=== PATIENT | male | born 1995 | race African-American/Black ===

== ENCOUNTER 2018-10-29 18:09 | Inpatient (IN) ==
--- NOTE | 2018-10-29 19:05 | ED ---
HPI General Chief Complaint: Extremity Injury, Upper Stated Complaint: Hand injury Time Seen by Provider: 10/29/18 18:47 Source: patient Mode of arrival: ambulatory Limitations: no limitations History of Present Illness HPI narrative: Patient is a 22-year-old male here today for pain and swelling to the dorsal aspect of his right hand at the base of his fourth and fifth digits. He states that he became upset and he punched the floor which was cement. He is able to move his hand but states it causes significant pain when doing so. Denies any medical history, denies taking medication daily. complaint: injury to: Reports right and hand Onset (ago): hour(s) Other Extremity Injury: Right: hand Handedness: right Severity: moderate Severity scale (1-10): 6 Relieving factors: none Exacerbating factors: movement of extremity Related Data Previous Rx's Medication Instructions Recorded hydrocodone-acetaminophen [[place]] 1 tab PO Q8H PRN #9 tab 10/30/18 ondansetron HCl [Zofran] 4 mg PO Q8H PRN #9 tab 10/30/18 Allergies Allergy/AdvReac Type Severity Reaction Status Date / Time No Known Allergies Allergy Verified 10/31/18 04:55 Review of Systems ROS: all other systems reviewed are negative [facility] Medical History Medical History Patient denies medical problems (Acute) Surgical History Surgical History No history of previous surgery (Acute) Social History Social History Substance History: Active Abuse Second Hand Smoke Exposure: No Smoking Status: Never smoker How Often Do You Have a Drink Containing Alcohol: Never Recent Travel in [facility] within the Last 8 Weeks: No Recent Out of Country Travel within the Last 8 Weeks: No Substance Abuse Detail Marijuana: Substance Use Status: Active Route Used Substance Abuse: Inhalation Immunization History Tetanus Immunization: Unsure Exam Narrative Exam Narrative: GENERAL: Pt awake, alert, oriented, no acute distress, answering questions appropriately. SKIN: Focused skin assessment warm/dry. No diaphoresis, no flushing, no rashes. HEAD: Atraumatic. Normocephalic. EYES: Pupils equal and round reactive to light. No scleral icterus. No injection or drainage. ENT: Tympanic membranes pearly chance bilaterally no effusions. Ear canal normal for ethnicity no drainage no inflammation no pain on palpation. Nares with no erythema no drainage. No facial or forehead tenderness with palpation. Negative mastoid tenderness bilaterally. Posterior pharynx with no erythema, tonsils 2+ bilaterally no exudate. Negative head or neck lymphadenopathy. NECK: Trachea midline. No JVD. CARDIOVASCULAR: Regular rate and rhythm. No murmur, no pedal edema. appreciated. RESPIRATORY: No accessory muscle use. Clear to auscultation. Breath sounds equal bilaterally. No accessory muscle use. GASTROINTESTINAL: Abdomen soft, non-tender, nondistended. Hepatic and splenic margins not palpable, (+) bowel sounds all 4 quadrants. Negative CVA tenderness bilaterally. MUSCULOSKELETAL: No obvious deformities. No clubbing. No cyanosis. (+) E edema /hematoma to the dorsal aspect of right hand at the base of fourth and fifth digits hematomas approximately 4 cm in length. Patient able to open and close his hand but states it causes significant pain when doing so. Capillary refill on all digits of affected hand less than 2 seconds. NEUROLOGICAL: Awake and alert. No obvious cranial nerve deficits. Motor grossly within normal limits. Normal speech. PSYCHIATRIC: Appropriate mood and affect; insight and judgment normal. Course Initial Documented Vital Signs Temperature 98.5 F 10/29/18 18:19 Pulse Rate 62 10/29/18 18:19 Respiratory Rate 16 10/29/18 18:19 Blood Pressure 148/97 H 10/29/18 18:19 Last Documented Vital Signs Temperature 98.2 F 10/30/18 16:00 Pulse Rate 114 H 10/30/18 16:00 Respiratory Rate 20 10/30/18 16:00 Blood Pressure 148/75 H 10/30/18 16:00 Pulse Oximetry 93 L 10/30/18 16:00 Medical Decision Making MDM Narrative Medical decision making narrative: Medical decision making narrative: During the course of the patients emergency department visit, the patients history, examination, and differential diagnosis were reviewed with the patient. Patient punched the cement floor there is a high suspicion of a boxer's fracture x-ray of hand ordered, [place] and ibuprofen also ordered as well as ice pack. 2034-Radiology studies were reviewed and remarkable for 4th and 5th Fracture dislocation of the fourth and fifth metacarpals. Pt transferred to medical pod , discussed case and transferred care to Dr. Moncada Medical Screen Exam Complete: Yes Emergency Medical Condition: Yes 2044 Care assumed of patient in transfer from fast track to medical pod. X-ray imaging shows comminuted mildly displaced fracture of the base of the fourth metacarpal with associated dorsal dislocation. Fifth metacarpal also appears to be grossly dislocated. I spoke with Dr. Alexander hand surgeon who requests admission to medicine and will take patient to the OR in the morning for surgical repair. N.p.o. at midnight. I spoke with Dr. Sylvester [facility] who accepts the patient to her service. Medical Screen Exam Complete: Yes Emergency Medical Condition: Yes Differential Diagnosis Differential Diagnosis: Boxer's fracture,hematoma, phalynx fracture, ulna fracture Lab Data Result diagrams: 10/30/18 06:34 10/30/18 06:34 Lab Results 10/29/18 10/29/18 10/29/18 Range/Units 22:13 22:13 22:13 WBC 6.7 (4.0-11.0) th/mm3 RBC 5.26 (4.50-5.90) mil/mm3 Hgb 16.7 (13.0-17.0) gm/dL Hct 48.3 (39.0-51.0) % MCV 91.9 (80.0-100.0) fL MCH 31.7 (27.0-34.0) pg MCHC 34.6 (32.0-36.0) % RDW 13.3 (11.6-17.2) % Plt Count 343 (150-450) th/mm3 MPV 8.4 (7.0-11.0) fL Neut % (Auto) 51.2 (16.0-70.0) % Lymph % (Auto) 38.9 (9.0-44.0) % [place] % (Auto) 7.8 (0.0-8.0) % Eos % (Auto) 1.3 (0.0-4.0) % Baso % (Auto) 0.8 (0.0-2.0) % Neut # (Auto) 3.4 (1.8-7.7) th/mm3 Lymph # (Auto) 2.6 (1.0-4.8) th/mm3 [place] # (Auto) 0.5 (0.0-0.9) th/mm3 Eos # (Auto) 0.1 (0.0-0.4) th/mm3 Baso # (Auto) 0.1 (0.0-0.2) th/mm3 WBC Differential . Differential Comment Auto diff final PT 11.2 (9.8-11.6) sec INR 1.1 Ratio APTT 31.5 (23.4-31.7) sec Sodium 141 (136-145) meq/L Potassium 3.3 L (3.5-5.1) meq/L Chloride 106 (98-107) meq/L Carbon Dioxide 25.8 (21.0-32.0) meq/L Anion Gap 9 (5-15) meq/L BUN 10 (7-18) mg/dL Creatinine 1.36 H (0.60-1.30) mg/dL Estimated GFR 78 L (>89) mL/min Random Glucose 124 H (74-106) mg/dL Calcium 9.3 (8.5-10.1) mg/dL Total Bilirubin 1.4 H (0.2-1.0) mg/dL AST 42 H (15-37) U/L ALT 34 (12-78) U/L Alkaline Phosphatase 51 (45-117) U/L Total Creatine Kinase (39-308) U/L CK-MB (CK-2) (0.5-3.6) ng/mL CK-MB (CK-2) % (0.0-4.0) % Total Protein 7.7 (6.4-8.2) g/dL Albumin 4.4 (3.4-5.0) g/dL 10/30/18 10/30/18 Range/Units 06:34 06:34 WBC 6.2 (4.0-11.0) th/mm3 RBC 4.55 (4.50-5.90) mil/mm3 Hgb 14.6 D (13.0-17.0) gm/dL Hct 42.0 (39.0-51.0) % MCV 92.3 (80.0-100.0) fL MCH 32.0 (27.0-34.0) pg MCHC 34.7 (32.0-36.0) % RDW 13.2 (11.6-17.2) % Plt Count 290 (150-450) th/mm3 MPV 8.5 (7.0-11.0) fL Neut % (Auto) 43.6 (16.0-70.0) % Lymph % (Auto) 39.5 (9.0-44.0) % [place] % (Auto) 11.8 H (0.0-8.0) % Eos % (Auto) 4.5 H (0.0-4.0) % Baso % (Auto) 0.6 (0.0-2.0) % Neut # (Auto) 2.7 (1.8-7.7) th/mm3 Lymph # (Auto) 2.5 (1.0-4.8) th/mm3 [place] # (Auto) 0.7 (0.0-0.9) th/mm3 Eos # (Auto) 0.3 (0.0-0.4) th/mm3 Baso # (Auto) 0.0 (0.0-0.2) th/mm3 WBC Differential . Differential Comment Auto diff final PT (9.8-11.6) sec INR Ratio APTT (23.4-31.7) sec Sodium 144 (136-145) meq/L Potassium 3.8 (3.5-5.1) meq/L Chloride 109 H (98-107) meq/L Carbon Dioxide 27.5 (21.0-32.0) meq/L Anion Gap 8 (5-15) meq/L BUN 9 (7-18) mg/dL Creatinine 1.46 H (0.60-1.30) mg/dL Estimated GFR 72 L (>89) mL/min Random Glucose 79 (74-106) mg/dL Calcium 8.1 L D (8.5-10.1) mg/dL Total Bilirubin 0.9 (0.2-1.0) mg/dL AST 32 (15-37) U/L ALT 29 (12-78) U/L Alkaline Phosphatase 46 (45-117) U/L Total Creatine Kinase 939 H (39-308) U/L CK-MB (CK-2) 2.3 (0.5-3.6) ng/mL CK-MB (CK-2) % 0.2 (0.0-4.0) % Total Protein 6.4 D (6.4-8.2) g/dL Albumin 3.5 D (3.4-5.0) g/dL Imaging Data Radiologist's impression: Hand X-Ray 10/29/18 18:58 CONCLUSION: 1. Fracture dislocation of the fourth and fifth metacarpals, as above. Discharge Plan Discharge Disposition Patient Disposition: ED Admit(ED Internal Use Only) Discharge Condition Condition: Stable Discharge Order Discharge Orders: Discharge Order (Routine); Ordered 10/30/18 Ordered By: María Peters ED Use Only Admit Order (Routine); Ordered 10/29/18 Ordered By: Christy Griggs Discharge Details Anticipated Discharge Date: 10/30/18 Diagnosis: Closed fracture dislocation of carpometacarpal joint of right hand Physicians Team ED Provider: Marielle Rivera ED Midlevel Provider: Christy Griggs Primary Care Provider: Primary Care Angie Carver Attending Provider: Lion Yun Other Providers: Bennie Alexander Status ED Status: Left Department Discharge Information Discharge Date/Time: 10/29/18 22:46
--- NOTE | 2018-10-29 19:17 | XR ---
EXAM DATE: 10/29/2018 7:14 PM EST AGE/SEX: 22 years / Male INDICATIONS: Right hand pain. patient hit hand on ground at kickboxing. CLINICAL DATA: This is the patient's initial encounter. Patient reports that signs and symptoms have been present for 1 day and indicates a pain score of 10/10. MEDICAL/SURGICAL HISTORY: None. None. COMPARISON: No prior exams available for comparison. FINDINGS: Comminuted mildly displaced fracture of the base of the fourth metacarpal with associated dorsal disl ocation. Fifth metacarpal also appears to be grossly dislocated. CONCLUSION: 1. Fracture dislocation of the fourth and fifth metacarpals, as above. Electronically signed by: Deandre Marmolejo MD Board Certified Radiologist 10/29/2018 7:16 PM EST
[2018-10-29] MEDS ORDERED: Bisacodyl 10 MG Supp RECTAL PRN (21:45)
[2018-10-29] MEDS ORDERED: Acetaminophen 325 MG Tablet PO PRN (21:45)
--- NOTE | 2018-10-29 21:46 | P.HPIM ---
History of Present Illness Primary Care Physician: No Primary Care Physician History of Present Illness: This is a 22-year-old male with no significant PMH who presents the ER with complaints of right hand pain and swelling after punching the cement ground. States he got angry and punched the floor. +right hand pain, severe, 10/10, non-radiating, worse w/ movement. No other injuries reported. On arrival, BP 148/97, HR 62, Afebrile. CBC unremarkable. INR 1.1. Creatinine 1.36, no previous labs for comparison. Hand X-ray with fracture dislocation of the fourth and fifth metacarpals. Dr. Paz consulted, plan for surgical intervention in am. Diagnosis (1) Closed fracture dislocation of carpometacarpal joint of right hand: (2) LISANDRO (acute kidney injury): Review of Systems PAST FAMILY HISTORY: Reviewed. No h/o DM or CAD Review of Systems: all other systems reviewed are negative [facility] Medical History Medical History Patient denies medical problems (Acute) Surgical History Surgical History No history of previous surgery (Acute) Social History Social History Substance History: Active Abuse Second Hand Smoke Exposure: No Smoking Status: Never smoker How Often Do You Have a Drink Containing Alcohol: Never Recent Travel in [place] within the Last 8 Weeks: No Recent Out of Country Travel within the Last 8 Weeks: No Substance Abuse Detail Marijuana: Substance Use Status: Active Route Used Substance Abuse: Inhalation Immunization History Tetanus Immunization: Unsure Medications and Allergies Allergies Allergy/AdvReac Type Severity Reaction Status Date / Time No Known Allergies Allergy Verified 10/29/18 18:48 Home Medications Medication Instructions Recorded Confirmed Type No Known Home Medications 10/29/18 10/29/18 History Active Medications: Active Medications Sodium Chloride (Ns Flush) 2 ml IV.FLUSH PRN PRN PRN Reason: FLUSH AFTER USING IV ACCESS Physical Exam Vital signs: Vital Signs 10/29/18 18:19 Temperature 98.5 F Pulse Rate 62 Respiratory Rate 16 Blood Pressure 148/97 H Intake & Output 02/22/19 02/22/19 02/23/19 06:59 18:59 06:59 Weight 77.564 kg Narrative: PE: GENERAL: Very pleasant young black male in no acute distress. SKIN: Focused skin assessment warm and dry. HEENT: PERRLA, EOMI. No scleral icterus or conjunctival pallor. No lid lag or facial droop. CARDIOVASCULAR: Regular rate and rhythm. No obvious murmurs to auscultation. No chest tenderness to palpation. RESPIRATORY: No obvious rhonchi or wheezing. Clear to auscultation. Breath sounds equal bilaterally. GASTROINTESTINAL: Abdomen soft, non-tender, nondistended. BS normal. MUSCULOSKELETAL: Extremities without clubbing, cyanosis, or edema. No obvious deformities. Decreased ROM of right hand due to injury NEUROLOGICAL: Awake, alert and oriented x4. No focal neurologic deficits. Moving both upper and lower extremities spontaneously. PSYCHIATRIC: Appropriate mood and affect. Insight and judgment normal. Results Labs CBC & Chem 7: 10/29/18 22:13 10/29/18 22:13 Imaging Impressions Hand X-Ray 10/29/18 18:58 CONCLUSION: 1. Fracture dislocation of the fourth and fifth metacarpals, as above. Caprini VTE Risk Assessment Caprini VTE Risk Assessment: No/Low Risk (score <= 1) Caprini Risk Assessment Model: Point Value = 1 Point Value = 2 Point Value = 3 Point Value = 5 Age 41-60 Minor surgery BMI > 25 kg/m2 Swollen legs Varicose veins or History of unexplained or recurrent spontaneous Oral contraceptives or hormone replacement Sepsis (< 1 month) Serious lung disease, including pneumonia (< 1 month) Abnormal pulmonary function Acute myocardial infarction Congestive heart failure (< 1 month) History of inflammatory bowel disease Medical patient at bed rest Age 61-74 Arthroscopic surgery Major open surgery (> 45 min) Laparoscopic surgery (> 45 min) Malignancy Confined to bed (> 72 hours) Immobilizing plaster cast Central venous access Age >= 75 History of VTE Family history of VTE Factor V Leiden Prothrombin [id number] Lupus anticoagulant Anticardiolipin antibodies Elevated serum homocysteine Heparin-induced thrombocytopenia Other congenital or acquired thrombophilia Stroke (< 1 month) Elective arthroplasty Hip, pelvis, or leg fracture Acute spinal cord injury (< 1 month) Prophylaxis Regimen: Total Risk Factor Score Risk Level Prophylaxis Regimen 0-1 Low Early ambulation 2 Moderate Order ONE of the following: *Sequential Compression Device (SCD) *Heparin 5000 units SQ BID 3-4 Higher Order ONE of the following medications: *Heparin 5000 units SQ TID *Enoxaparin/Lovenox 40 mg SQ daily (WT < 150 kg, CrCl > 30 mL/min) *Enoxaparin/Lovenox 30 mg SQ daily (WT < 150 kg, CrCl > 10-29 mL/min) *Enoxaparin/Lovenox 30 mg SQ BID (WT < 150 kg, CrCl > 30 mL/min) AND/OR *Sequential Compression Device (SCD) 5 or more Highest Order ONE of the following medications: *Heparin 5000 units SQ TID (Preferred with Epidurals) *Enoxaparin/Lovenox 40 mg SQ daily (WT < 150 kg, CrCl > 30 mL/min) *Enoxaparin/Lovenox 30 mg SQ daily (WT < 150 kg, CrCl > 10-29 mL/min) *Enoxaparin/Lovenox 30 mg SQ BID (WT < 150 kg, CrCl > 30 mL/min) AND *Sequential Compression Device (SCD) Assessment and Plan (1) Closed fracture dislocation of carpometacarpal joint of right hand: Status: Acute (2) LISANDRO (acute kidney injury): Code(s): N17.9 - Acute kidney failure, unspecified Status: Acute Plan A/P: 1. Right Hand Fx: after punching cement ground, X-ray w/ fracture dislocation of the fourth and fifth metacarpals. Dr. Paz consulted, plan is for surgical intervention in am. NPO after midnight, IVF, analgesics/antiemetics as needed. 2. LISANDRO: Creatinine 1.46, no previous labs for comparison, presumably new, IVF for hydration, monitor I/O, repeat labs in am. 3. DVT Prophylaxis: SCD/Teds 4. Social work for DC planning as needed. 5. Case discussed at length with the ER physician, labs/records/imaging reviewed by me.
[2018-10-29 22:29] LABS: Baso # (Auto) 0.1 th/mm3 (0.0-0.2); Baso % (Auto) 0.8 % (0.0-2.0); Eos # (Auto) 0.1 th/mm3 (0.0-0.4); Eos % (Auto) 1.3 % (0.0-4.0); Hematocrit 48.3 % (39.0-51.0); Hemoglobin 16.7 gm/dL (13.0-17.0); Lymph # (Auto) 2.6 th/mm3 (1.0-4.8); Lymph % (Auto) 38.9 % (9.0-44.0); Mean Corpuscular HGB Conc 34.6 % (32.0-36.0); Mean Corpuscular Hemoglobin 31.7 pg (27.0-34.0); Mean Corpuscular Volume 91.9 fL (80.0-100.0); Mean Platelet Volume 8.4 fL (7.0-11.0); Mono # (Auto) 0.5 th/mm3 (0.0-0.9); Mono % (Auto) 7.8 % (0.0-8.0); Neut # (Auto) 3.4 th/mm3 (1.8-7.7); Neut % (Auto) 51.2 % (16.0-70.0); Platelet Count 343 th/mm3 (150-450); Red Blood Count 5.26 mil/mm3 (4.50-5.90); Red Cell Distribution Width 13.3 % (11.6-17.2); White Blood Count 6.7 th/mm3 (4.0-11.0)
[2018-10-29 22:42] LABS: Activated Partial Thrombo Time 31.5 sec (23.4-31.7); INR 1.1 Ratio; Prothrombin Time 11.2 sec (9.8-11.6)
[2018-10-29 22:50] LABS: Albumin 4.4 g/dL (3.4-5.0); Anion Gap 9 meq/L (5-15); Aspartate Aminotransferase 42 U/L (15-37); Blood Urea Nitrogen 10 mg/dL (7-18); Calcium 9.3 mg/dL (8.5-10.1); Carbon Dioxide 25.8 meq/L (21.0-32.0); Chloride 106 meq/L (98-107); Glomerular Filtration Rate 78 mL/min (>89); Glucose,Random 124 mg/dL (74-106); Potassium 3.3 meq/L (3.5-5.1); Sodium 141 meq/L (136-145)
[2018-10-29] MEDS: Sod Chloride 0.9% Inj 1,000 ML IV.CONT SCH (22:52)
[2018-10-29 22:54] LABS: Alanine Aminotransferase 34 U/L (12-78); Alkaline Phosphatase 51 U/L (45-117); Total Protein 7.7 g/dL (6.4-8.2)
[2018-10-29] MEDS: Morphine Sulfate Inj 2 MG/ML Vial IV.PUSH PRN (23:02)
[2018-10-30] MEDS: Morphine Sulfate Inj 2 MG/ML Vial IV.PUSH PRN ×2 (04:53→08:24)
[2018-10-30 07:06] LABS: Baso % (Auto) 0.6 % (0.0-2.0); Eos # (Auto) 0.3 th/mm3 (0.0-0.4); Eos % (Auto) 4.5 % (0.0-4.0); Hemoglobin 14.6 gm/dL (13.0-17.0); Lymph # (Auto) 2.5 th/mm3 (1.0-4.8); Lymph % (Auto) 39.5 % (9.0-44.0); Mean Corpuscular HGB Conc 34.7 % (32.0-36.0); Mean Corpuscular Volume 92.3 fL (80.0-100.0); Mean Platelet Volume 8.5 fL (7.0-11.0); Mono # (Auto) 0.7 th/mm3 (0.0-0.9); Mono % (Auto) 11.8 % (0.0-8.0); Neut # (Auto) 2.7 th/mm3 (1.8-7.7); Neut % (Auto) 43.6 % (16.0-70.0); Platelet Count 290 th/mm3 (150-450); Red Blood Count 4.55 mil/mm3 (4.50-5.90); Red Cell Distribution Width 13.2 % (11.6-17.2); White Blood Count 6.2 th/mm3 (4.0-11.0)
[2018-10-30 07:36] LABS: Alanine Aminotransferase 29 U/L (12-78); Albumin 3.5 g/dL (3.4-5.0); Anion Gap 8 meq/L (5-15); Aspartate Aminotransferase 32 U/L (15-37); Blood Urea Nitrogen 9 mg/dL (7-18); Calcium 8.1 mg/dL (8.5-10.1); Carbon Dioxide 27.5 meq/L (21.0-32.0); Chloride 109 meq/L (98-107); Glomerular Filtration Rate 72 mL/min (>89); Glucose,Random 79 mg/dL (74-106); Potassium 3.8 meq/L (3.5-5.1); Sodium 144 meq/L (136-145)
[2018-10-30 07:37] LABS: Alkaline Phosphatase 46 U/L (45-117); Creatine Kinase 939 U/L (39-308); Total Protein 6.4 g/dL (6.4-8.2)
[2018-10-30 08:00] LABS: CKMB Percent 0.2 % (0.0-4.0); Creatine Kinase MB 2.3 ng/mL (0.5-3.6)
[2018-10-30] MEDS: Sod Chloride 0.9% Inj 1,000 ML IV.CONT SCH (08:27)
[2018-10-30] MEDS ORDERED: Senna/Docusate Sodium 8.6/50 MG Tablet PO SCH (09:00)
--- NOTE | 2018-10-30 09:42 | P.PNIM ---
Subjective Interval history: Follow-up visit for right hand fourth and fifth metacarpal fractures. Patient seen and examined sitting up in bed and appears to be in no acute distress. This morning he reports nausea with morphine, no vomiting. Reports his pain is tolerable at the moment, some numbness to right hand fourth and fifth fingers believed to be secondary to splint. He is requesting to speak to surgeon prior to surgery. Denies fevers, chills, cough or shortness of breath. Physical Exam Vital signs: Vital Signs 10/29/18 18:19 10/29/18 22:43 10/29/18 22:50 Temperature 98.5 F 97.4 F L Pulse Rate 62 65 Respiratory Rate 16 20 18 Blood Pressure 148/97 H 144/96 H 134/86 Pulse Oximetry 97 10/30/18 04:40 10/30/18 08:00 Temperature 98 F 98 F Pulse Rate 65 70 Respiratory Rate 17 22 Blood Pressure 132/62 135/87 Pulse Oximetry 96 99 Intake & Output 10/29/18 10/30/18 10/30/18 18:59 06:59 18:59 Intake Total 240 / 240 1000 / 1000 Balance 240 / 240 1000 / 1000 Weight 77.564 kg 80.6 kg Intake: IV 1000 / 1000 NS Inj 1,000 ML @ 100 mls/hr IV 1000 / 1000 .CONT .Q10H STALIN Rx#:[id number] Oral 240 / 240 Other: # Voids 0 2 Date of Last Bowel Movement 10/29/18 # Bowel Movements 0 Weight On Admission 77.564 kg Narrative: GENERAL: Very pleasant young black male in no acute distress. CARDIOVASCULAR: Regular rate and rhythm. No obvious murmurs to auscultation. RESPIRATORY: Clear to auscultation. Breath sounds equal bilaterally. MUSCULOSKELETAL: Extremities without clubbing, cyanosis, or edema. No obvious deformities. Right hand/wrist in splint particularly fourth and fifth metacarpals, ROM limited 2/2 splint, capillary refill less than 3 seconds. NEUROLOGICAL: Awake, alert and oriented x4. No focal neurologic deficits. Moving both upper and lower extremities spontaneously. PSYCHIATRIC: Appropriate mood and affect. Insight and judgment normal. Results Labs CBC & Chem 7: 10/30/18 06:34 10/30/18 06:34 Imaging Imaging: Impressions Hand X-Ray 10/29/18 18:58 CONCLUSION: 1. Fracture dislocation of the fourth and fifth metacarpals, as above. Assessment and Plan (1) Closed fracture dislocation of carpometacarpal joint of right hand: Status: Acute (2) LISANDRO (acute kidney injury): Code(s): N17.9 - Acute kidney failure, unspecified Status: Acute Plan 22-year-old male with relatively no past medical history who presents to the emergency department after punching the floor injuring right hand with complaints of severe pain. Right hand metacarpal fractures -X-ray with noted fracture dislocation of fourth and fifth metacarpals. -Pain control with IV morphine, PRN Zofran for nausea -Dr. Soria consulted, plans for surgical intervention today Acute kidney injury -Creatinine 1.36--> 1.46 -No prior labs to compare, no history noted. Likely secondary to elevated CK levels -Continue IV fluids and oral hydration following surgery -Continue to monitor labs while inpatient or with PCP cleared for discharge later today Hypokalemia, mild -Repeat labs this morning stable DVT prophylaxisambulation and SCDs Patient originally anticipated to need at least 2 midnights for recovery, but his overall assessment and status is improved faster than expected. He has been cleared for discharge from specialist and is requesting to be discharged home. He is aware of follow-up with hand surgery. Discharge patient to home Condition on discharge: Improved Regular Diet as tolerated Ad Joanna activity Rx written: Sue and Figueroa Follow-up with primary care physician and in 2 weeks, BMP in 5 days. Code Status: Full code Discussed Condition With: Patient and nurse Progress Note: Quality VTE Deep Vein Thrombosis/Pulmonary Embolism Present on Admission: No
[2018-10-30] MEDS ORDERED: fentaNYL Citrate Inj 250 MCG/5 ML Ampul ONE (11:03)
[2018-10-30] MEDS ORDERED: Ketorolac Inj 30 MG/ML (IVP) Vial IV.PUSH ONE (11:22)
[2018-10-30] MEDS ORDERED: Lidocaine PF 1% Inj 5 ML Syringe OTHER ONE (11:22)
[2018-10-30] MEDS ORDERED: Bupivacaine/Epinephrine Inj 0.25% 50 ML Vial ONE (11:32)
[2018-10-30] MEDS ORDERED: ceFAZolin 2 GM Premix Inj 2 GM/50 ML PIGGYBACK IV.SIG ONE (12:34)
[2018-10-30 17:08] VITALS: BP 148/75; PULSE 114; RESP 20; TEMP 98.2; O2SAT 93
--- NOTE | 2018-10-31 18:42 | P.OP ---
- Preoperative Diagnosis (1) Dislocation of carpometacarpal joint of right hand (2) Fracture of metacarpal base of right hand, closed - Postoperative Diagnosis (1) Dislocation of carpometacarpal joint of right hand (2) Fracture of metacarpal base of right hand, closed Date of procedure: 10/30/18 Procedure: Closed reduction of right fourth metacarpal base fracture (92303) Percutaneous pinning of right fourth metacarpal base fracture (90989) Closed reduction and percutaneous pinning of right fifth carpometacarpal dislocation (52219) Anesthesia: GETA Surgeon: Bennie Alexander MD Operation and Findings: 22-year-old male who presented with severely displaced right fourth metacarpal base fracture in addition to a right fifth carpometacarpal joint dislocation. Risk benefits alternative treatments discussed. All questions answered and the patient expressed understanding. Patient elected to assume the risks of reduction of the above fourth metacarpal fracture and fifth carpometacarpal dislocation as well as percutaneous pinning of both metacarpals. Informed consent obtained. Surgical sites were marked in the preoperative holding bay. The patient was given antibiotics on-call to the operating room. The patient was taken to the operating room and all pressure points were padded. A surgical timeout was performed. After smooth induction of general anesthesia, the surgical site was instilled with quarter percent Marcaine with epinephrine. The surgical site was prepped and draped in the usual sterile fashion. The right upper extremity was exsanguinated using an Esmarch bandage and an appropriately padded upper extremity tourniquet was inflated to 100 mmHg above systolic blood pressure. Both the fourth and fifth metacarpals were reduced in a closed fashion. This was confirmed with mini C-arm fluoroscopy. Following this two 0.045 inch K wires were placed into the lateral aspect of the fifth metacarpal base in a radial direction securing these bases to the third metacarpal base. Following this a third 0.045 inch K wire was placed in a retrograde fashion securing the fourth metacarpal base fracture to the hamate. Final films were taken with mini C-arm fluoroscopy. The above K wires were cut and capped with Jurgan balls. Surgical site was cleaned and dressed with mupirocin ointment and Xeroform gauze surrounding the pin sites. An appropriately padded ulnar gutter splint was fashioned. The tourniquet was released at 48 minutes. All digits pinked up nicely. All needle sponge and instrument counts were correct x2. The patient was awoken from anesthesia and arrived stable and doing well to the PACU.
== END 2018-10-30 17:56 | disposition home or self-care (01) | DRG 513 ==
LOC: NEPD 18:09 → NEDA 18:09 → N06 22:51
PROVIDERS: ADMIT Internal Medicine; ATTEND Internal Medicine
CPT/HCPCS: 29125; 73130; 76000; 80053; 82550; 82552; 85025; 85610; 85730; 99285; J0690; J1100; J1885; J2270; J2405; J2704; J3010; J7030; L6380